=== PATIENT | male | born 1945 | race Caucasian/White ===

== ENCOUNTER 2017-05-06 09:53 | Outpatient (CLI) | payer MEDICARE, OTHER ==
--- NOTE | 2017-05-06 14:40 | MRI ---
MRI OF THE RIGHT SHOULDER WITHOUT IV CONTRAST: Date: 05/06/17 COMPARISON: Prior exam dated 12/04/13 MR examination and 04/29/17 radiographic evaluation. FINDINGS: There is a massive rotator cuff tear now present involving the supraspinatus, infraspinatus, and subs capularis. The very caudal aspect of the subscapularis remains intact. There is now an interarticular split tear involving the biceps tendon that extends into the proximal bicipital groove. There is pro minent fluid surrounding the glenohumeral joint in the subacromial/subdeltoid space. There is moderat e atrophy of the supraspinatus, infraspinatus, and subscapularis. There is mild AC joint osteoarthros is. There is prominent degenerative fraying of the superior glenoid labrum. There is mild osteoarthri tic change of the glenohumeral joint. IMPRESSION: 1. Massive rotator cuff tear with moderate muscular atrophy. 2. Mild AC joint osteoarthrosis. 3. Mild glenohumeral osteoarthrosis. 4. Degenerative fraying of the glenoid labrum. 5. High grade partial thickness split tear involving the proximal long head of the biceps tendon. POS: [facility]
== END 2017-05-06 09:54 | disposition home or self-care (01) ==
LOC: TBSIIMAG 09:53
PROVIDERS: ATTEND Orthopaedic Surgery
DX: M25.511 Pain in right shoulder (principal); M75.101 Unspecified rotator cuff tear or rupture of right shoulder, not specified as traumatic; M19.011 Primary osteoarthritis, right shoulder; S46.811A Strain of other muscles, fascia and tendons at shoulder and upper arm level, right arm, initial encounter

== ENCOUNTER 2017-05-09 09:22 | Outpatient (CLI) | payer MEDICARE, OTHER ==
[2017-05-09 10:27] LABS: #Eosinphils 0.2 thou/uL (0.0-0.7); #Lymphocytes 1.4 thou/uL (1.20-3.40); #Monocytes 0.5 thou/uL (0.11-0.59); #Neutrophils 3.9 thou/uL (1.40-6.50); %Basophils 0.6 % (0.0-1.0); %Eosinophils 2.6 % (0.0-10.0); %Lymphocytes 23.6 % (21.0-51.0); %Neutrophils 65.2 % (42.0-75.0); Hemoglobin 14.4 g/dL (14.0-18.0); Mean Corpuscular HGB CONC 33.5 g/dL (32.0-36.0); Mean Corpuscular Hemoglobin 29.8 pg (27.0-31.0); Mean Platelet Volume 7.4 fL (7.4-10.4); Platelet Count 207 thou/uL (130-400); RBC Distribution Width 12.8 % (11.5-14.5); Red Blood Cell (RBC) Count 4.83 mill/uL (4.70-6.10); White Blood Cell (WBC) Count 5.9 thou/uL (4.8-10.8)
[2017-05-09 10:48] LABS: Anion Gap 11 mmol/L (10-20); BUN (Urea Nitrogen) 12 mg/dL (8.4-25.7); Calc. Creatinine Clearance 0 mL/min (70-130); Carbon Dioxide 25 mmol/L (23-31); Chloride 104 mmol/L (98-107); Estimated GFR-MDRD Greater than 90; Glucose 97 mg/dL (83-110); Potassium 4.2 mmol/L (3.5-5.1); Sodium 136 mmol/L (136-145)
--- NOTE | 2017-05-22 22:48 | EKG ---
Test Reason : Blood Pressure : / mmHG Vent. Rate : 063 BPM Atrial Rate : 063 BPM P-R Int : 170 ms QRS Dur : 104 ms QT Int : 396 ms P-R-T Axes : 025 -25 023 degrees QTc Int : 405 ms Normal sinus rhythm Possible Anterior infarct , age undetermined Abnormal ECG When compared with ECG of 23-MAR-2002 09:53, Premature ventricular complexes are no longer Present Confirmed by Michelle RENEE ([id number]) on 05/22/2017 10:48:15 PM Referred By: KEV Confirmed By:Michelle RENEE
== END 2017-05-09 09:23 | disposition home or self-care (01) ==
LOC: LABBT 09:22
PROVIDERS: ATTEND Orthopaedic Surgery
DX: Z01.818 Encounter for other preprocedural examination (principal); M75.102 Unspecified rotator cuff tear or rupture of left shoulder, not specified as traumatic
CPT/HCPCS: 80048; 85025; 93005; 93010

== ENCOUNTER 2017-05-15 07:02 | Day surgery (SDC) | payer MEDICARE, OTHER ==
[2017-05-09 09:39] VITALS: BMI 35.3
--- NOTE | 2017-05-15 07:36 | HP ---
HISTORY OF PRESENT ILLNESS: The patient is a 71-year-old right-handed male who has had a several yea r history of chronic impingement syndrome of the right shoulder, which has previously been managed wi th rest, restriction of activities, anti-inflammatory medications, and intermittent cortisone injecti ons. He became much worse approximately 2 weeks ago when he fell from a ladder. He has had increase d pain, marked weakness and inability to use his arm with day to day activities including eating, get ting dressed, and personal hygiene. He wants to have something done until this current situation is acceptable. PAST MEDICAL HISTORY: As noted above. The patient has a history of enlarged prostate, high choleste rol. He is normally quite active. CURRENT MEDICATIONS: Include Flomax, simvastatin, hydrocodone for pain. ALLERGIES: He is allergic to BUPRENORPHINE PATCH. FAMILY HISTORY: Otherwise unremarkable. SOCIAL HISTORY: Otherwise unremarkable. REVIEW OF SYSTEMS: Otherwise unremarkable. PHYSICAL EXAMINATION: GENERAL: Reveals an elderly healthy heavyset male. HEENT: Unremarkable. NECK: Supple. CHEST: Clear. HEART: Regular rate and rhythm. ABDOMEN: Soft, nontender. RECTAL/GENITAL: Deferred. EXTREMITIES: Pertinent findings of the right shoulder, there is mild bruising along the biceps and t he mid arm. There is tenderness in the subacromial area. Active flexion, abduction is less than 90 degrees. He has a positive drop arm test and weakness to forward flexion, abduction, and external ro tation. He has a positive impingement sign. There is no instability. Neurovascular exam is intact. There are good distal pulses. X-RAY FINDINGS: X-rays of the right shoulder reveal DJD at the AC joint, some early degenerative ham nges of the glenoid and the humeral head, may be slightly high riding. MRI scan of the right shoulde r reveals a massive rotator cuff tear with retraction and mild to moderate muscle atrophy, a split te ar of the biceps and early degenerative changes. IMPRESSION: Chronic impingement syndrome and rotator cuff tear and biceps tendinitis, right shoulder . PLAN: Open acromioplasty, attempted rotator cuff repair with possible biceps tenodesis. The nature of the surgery, length of recovery, and potential complications such as infection, loss of motion, in complete relief, inability to repair the tear, rupture of the repair, neurovascular injury and need f or additional treatment or repeat surgery have been discussed in detail with the patient and his .
[2017-05-15] MEDS ORDERED: Fentanyl 100 MCG/2 ML VIAL ONE ×2 (08:13→08:54)
[2017-05-15] MEDS ORDERED: Midazolam HCl 2 mg/2 ml Vial ONE (08:13)
[2017-05-15] MEDS ORDERED: HYDROmorphone 0.5 MG/0.5 ML SYRINGE ONE (08:54)
[2017-05-15] MEDS ORDERED: HYDROcodone/Acetaminophen 5/325 mg Tablet PO PRN ×2 (08:57)
[2017-05-15] MEDS ORDERED: Zolpidem Tartrate 5 MG TAB PO PRN (08:57)
[2017-05-15] MEDS ORDERED: Ropivacaine 0.2% 550 ML 550 ML NERVE BLCK SCH (08:57)
[2017-05-15] MEDS ORDERED: Promethazine HCl 25 MG/ML VIAL IM PRN (08:57)
[2017-05-15] MEDS ORDERED: traMADol HCl 50 MG TAB PO PRN ×2 (08:57)
[2017-05-15] MEDS ORDERED: Ondansetron HCl/PF 4 MG/2 ML Vial IVP PRN (08:57)
[2017-05-15] MEDS ORDERED: Ketorolac Tromethamine 30 MG/ML VIAL IVP PRN (08:57)
[2017-05-15] MEDS ORDERED: CEFAZOLIN/Water 2 GM/20 ML SYRINGE ONE (08:58)
[2017-05-15] MEDS ORDERED: Fentanyl 100 MCG/2 ML VIAL IV PRN (08:59)
[2017-05-15] MEDS ORDERED: Ropivacaine 0.2% HCl/PF (40 MG/20 ML VIAL) ONE (12:15)
[2017-05-15] MEDS ORDERED: Ropivacaine 0.5% HCl/PF (150 MG/30 ML VIAL) ONE (12:15)
[2017-05-15] MEDS ORDERED: Ondansetron HCl/PF 4 MG/2 ML Vial ONE (13:17)
[2017-05-15] MEDS ORDERED: Lidocaine 1% PF 5 ML VIAL ONE (13:17)
[2017-05-15] MEDS ORDERED: PHENYLEPHRINE-NS 100 MCG/ML 10 ML SYRINGE ONE (13:17)
[2017-05-15] MEDS ORDERED: ePHEDrine/0.9% NaCl/PF SYRINGE 50 mg/10 ml ONE (13:17)
[2017-05-15] MEDS ORDERED: PROPOFOL 200 MG/20 ML VIAL ONE (13:17)
[2017-05-15] MEDS ORDERED: Dexamethasone 20 MG/5 ML VIAL ONE (13:17)
--- NOTE | 2017-05-15 15:53 | OP ---
DATE OF PROCEDURE: 05/15/2017 SURGEON: Emeka Coreas M.D. WAXED BAG MACHINE OPERATOR: Steffanie Richardson PA-C. ANESTHESIA: General plus scalene block. PREOPERATIVE DIAGNOSES: Massive rotator cuff tear, right shoulder. POSTOPERATIVE DIAGNOSES: Massive rotator cuff tear, right shoulder. PROCEDURE: Open acromioplasty and rotator cuff repair, right shoulder. OPERATIVE FINDINGS: Examination under anesthesia revealed the shoulder to be stable. At exploration , there was moderate subacromial impingement. There was a massive rotator cuff tear with essentially bald humeral head with moderate retraction. There was significant degeneration of the teres major t endon. There was some fraying of the biceps, but the bulk of the tendon appeared to be intact so I e lected to leave this as is. Satisfactory repair was accomplished, but posteriorly I could not in fac t completely repair and had probably 85%-90% repair of the tendon, which appeared to be satisfactory. NARRATIVE REPORT: After satisfactory anesthesia was induced in the semi allen chair position, the p atient was prepped and draped in routine manner. Shoulder was approached through anterolateral incis ion centered off the anterolateral edge of the acromion process, carried down through subcutaneous ti ssues. Bleeding points controlled with Bovie cautery. Deltoid raphae was split and the deltotrapezi al fascia detached from the anterior edge of the acromion process and distal clavicle. Coracoacromia l ligament was divided. Anterior acromioplasty was accomplished by sizing the anterior acromion flus h with the clavicle with an osteotome and the undersurface bevelled with a curved osteotome, rongeur and rasp. The deltoid was reflected. A partial subacromial bursectomy was performed. The above fin dings were noted. Using sharp and blunt dissection, the above findings were noted. Several traction sutures of heavy Vicryl suture were placed temporarily in the tendon and the tear mobilized with larry nt dissection and the above findings were noted. The ends were slightly freshened. A portion of the greater tuberosity was excised with a rongeur to provide a good bony bed for repair. The rotator cu ff was then repaired using three triple loaded suture anchors with heavy FiberWire suture. After pa cing sutures, they were tied in sequence of posterior to anterior. Posteriorly, there was still a po rtion of the teres they cannot really be repaired, but does appear to be good coverage of the humeral head and appeared to be between 85%-90% repair of the cuff. After tying the sutures, the shoulder could be placed through a gentle range of motion and there was satisfactory motion and no excessive tension on the repair and satisfactory subacromial clearance. One strand from each suture was cut and the other remaining strand was used to effect a double row te chnique using 2 SwiveLock anchors placed in a crisscross fashion. This appeared to give good stable repair and the cuff repair laid flat. The wound was thoroughly irrigated. The deltoid was repaired back to bone with interrupted #1 Ethibond sutures. The deltoid raphae was closed with interrupted #1 Vicryl, subcutaneous tissues closed with interrupted 2-0 Vicryl, and skin closed with staple gun. S terile dressing was applied. The patient immobilized in an arm sling. He was awakened and taken to recovery room in stable condition. There were no apparent intraoperative complications. The estimat ed blood loss was approximately 100 mL. The patient will be discharged home in satisfactory condition. He was instructed in ice, elevation, and given written wound care instructions. He was at home program with the use of a sling. Isometri cs of his biceps and triceps and gentle passive pendulum exercises, but no active range of motion. Ambika tracey will use a sling at all times except for skin care and gentle pendulum exercises. He was given [place] wound care instructions and a prescription for [place] 10 for pain, 100 tablets. He will be reche cked in my office in approximately 2 weeks or sooner if any problems prior to that time.
== END 2017-05-15 14:15 | disposition home or self-care (01) ==
LOC: SDC 07:02
PROVIDERS: ATTEND Orthopaedic Surgery
PROC: 0LQ10ZZ Repair Right Shoulder Tendon, Open Approach (ICD-10-PCS; principal; 2017-05-15)
PROC: 0RNJ0ZZ Release Right Shoulder Joint, Open Approach (ICD-10-PCS; 2017-05-15)
DX: S46.011A Strain of muscle(s) and tendon(s) of the rotator cuff of right shoulder, initial encounter (principal); G89.4 Chronic pain syndrome; N40.0 Benign prostatic hyperplasia without lower urinary tract symptoms; E78.00 Pure hypercholesterolemia, unspecified; Z88.5 Allergy status to narcotic agent; Z79.899 Other long term (current) drug therapy; W11.XXXA Fall on and from ladder, initial encounter
CPT/HCPCS: 23415; 97110; 97139; A4306; G8984; G8985; G8986; C1713; J1100; J1170; J2001; J2250; J2405; J2704; J2795; J3010

== ENCOUNTER 2019-07-01 13:21 | Outpatient (CLI) | payer MEDICARE, OTHER ==
--- NOTE | 2019-07-01 14:15 | RAD ---
LEFT FOOT: 07/01/19 Three views. HISTORY: Foot pain. Spur from the plantar calcaneus. Prominent degenerative changes at the tarsometatarsal joints with brian int narrowing and hypertrophic spurring. Subchondral cystic changes are seen at the first, second and third tarsometatarsal joints. Mild DJD at the first MTP joint. No fracture or acute abnormality. IMPRESSION: Prominent DJD at the tarsometatarsal joints. Calcaneal spur. POS: [facility]
--- NOTE | 2019-07-01 14:17 | RAD ---
EXAM: RIGHT FOOT THREE VIEWS: 07/01/19 HISTORY: Right foot pain particularly at the first tarsal region extending towards the ankle, numbness in toes . FINDINGS: Osteoarthrosis and degenerative changes of the foot and ankle. Minimal dorsal and medial soft tissue swelling but less prominent than on the prior exam, 02/25/2019. Calcaneal and plantar enthesophytes. N o acute fracture or dislocation. IMPRESSION: Osteoarthrosis and degenerative change. Minimal dorsal and medial soft tissue swelling but less marke d than on prior study. No acute fracture or dislocation. POS: [facility]
== END 2019-07-01 13:22 | disposition home or self-care (01) ==
LOC: BICRAD 13:21
PROVIDERS: ATTEND Podiatrist
DX: M79.671 Pain in right foot (principal); M79.89 Other specified soft tissue disorders; M19.071 Primary osteoarthritis, right ankle and foot; M19.072 Primary osteoarthritis, left ankle and foot; M77.32 Calcaneal spur, left foot

== ENCOUNTER 2020-01-14 07:36 | Outpatient (CLI) | payer MEDICARE, OTHER ==
--- NOTE | 2020-01-14 10:31 | MRI ---
MRI LUMBAR SPINE WITHOUT CONTRAST: Date: 01/14/2020 INDICATION: Lumbar degenerative disc disease. Low back pain. FINDINGS: Lumbar vertebra maintain height. There are moderately severe degenerative changes throughout with ant erior and lateral osteophytes from the lumbar vertebra. Degenerative disc changes at all levels of th e lumbar spine, most severe at L1-2, L2-3, and L3-4. Loss of disc space is pronounced at L5-S1. L5 is transitional. Degenerative end plate changes are prominent at L2-3 and L3-4. T12-L1: Broad based disc bulge flattens the thecal sac and effaces the anterior subarachnoid space. No significant impingement on the conus. Mild central canal stenosis. L1-2: Diffuse disc bulge flattens the thecal sac. Facet arthrosis and hypertrophy. Mild central any l stenosis. Mild left foraminal stenosis. L2-3: Broad based disc bulge flattens the thecal sac. Facet arthrosis and hypertrophy. Mild to moder ate central canal stenosis. No significant foraminal stenosis. L3-4: Slight posterolisthesis with broad based disc bulge. Moderate facet hypertrophy. Mild to moder ate central canal stenosis. Bilateral foraminal stenosis. L4-5: Slight posterolisthesis with diffuse disc bulge. Moderate facet hypertrophy. Mild central any l stenosis. Bilateral foraminal stenosis. L5-S1: Mild disc bulge. No significant central canal stenosis. Bilateral foraminal stenosis. IMPRESSION: Multilevel degenerative disc changes as described above. POS: [facility]
--- NOTE | 2020-01-14 10:35 | MRI ---
MRI THORACIC SPINE WITHOUT CONTRAST: Date: 01/14/2020 INDICATION: Thoracic spine pain. FINDINGS: Thoracic vertebra maintain height and alignment. No evidence of thoracic vertebra edema or compressio n. Degenerative disc changes at multiple levels. Degenerative osteophytes in anterior and lateral tho racic vertebra. There are disc bulges at multiple levels as detailed below. Diffuse bulge at T2-T3 effaces the anterior subarachnoid space and appears to abut the cord on the sa gittal imaging. Minimal disc bulge at T5-T6 flattens the thecal sac and mildly effaces the anterior subarachnoid spac e. No cord impingement. Similar disc bulges are seen at T6-T7 and T7-T8. Anterior subarachnoid space is effaced at both of th angelique levels. A more pronounced bulge/protrusion at T8-T9 abuts the anterior cord. Disc bulge/protrusion at T10-T11 impinges on and mildly compresses the anterior cord. Diffuse bulge/protrusion at T12-L1 is seen with disc osteophyte complex to the left flattening the th ecal sac on the left and effacing the anterior subarachnoid space. No significant impingement on the conus. The thoracic cord signal appears normally maintained. IMPRESSION: 1. Multilevel degenerative disc changes of thoracic spine. Thoracic vertebra maintain height and ali gnment. 2. Disc bulges and protrusions at multiple levels as detailed above. POS: [facility]
== END 2020-01-14 07:37 | disposition home or self-care (01) ==
LOC: TBSIIMAG 07:36
PROVIDERS: ATTEND Family Medicine
DX: M51.36 Other intervertebral disc degeneration, lumbar region (principal); M54.6 Pain in thoracic spine; M51.34 Other intervertebral disc degeneration, thoracic region; M51.24 Other intervertebral disc displacement, thoracic region
CPT/HCPCS: 72146; 72148

== ENCOUNTER 2020-04-04 12:56 | Outpatient (CLI) | payer MEDICARE, OTHER ==
--- NOTE | 2020-04-04 15:04 | MRI ---
MRI OF RIGHT KNEE PERFORMED WITHOUT CONTRAST ENHANCEMENT: HISTORY: Twisting injury to knee 5-6 weeks ago, persistent effusion. FINDINGS: The anterior and posterior cruciate ligaments are intact. There is a complex tear involving the posterior horn and body region of the medial meniscus. Menisca l protrusion related to radial components of the tear and loss of hoop strength. On the lateral side, there is a partial root tear of the posterior horn. There is what may e a separ ate tear or continuation of the tear extending into the posterior horn and body junction region and i nto the body of the meniscus which is truncated. There are marked arthritic changes of both the medi al and lateral compartments of the knee associated with these findings. Medial and lateral collateral ligaments and iliotibial band regions are unremarkable. Patellar articular cartilage shows mild articular cartilage loss. The medial and lateral patellar re tinaculum and quadriceps and patellar tendons are normal. Minimal joint effusion is seen. There is a very large Moseley's cyst. IMPRESSION: 1. Severe arthritic changes of the medial and lateral compartments of the knee with extensive menisc al tears. 2. Large Moseley's cyst. POS: [facility]
== END 2020-04-04 12:57 | disposition home or self-care (01) ==
LOC: BICMRI 12:56
PROVIDERS: ATTEND Orthopaedic Surgery
DX: M23.91 Unspecified internal derangement of right knee (principal); S83.281A Other tear of lateral meniscus, current injury, right knee, initial encounter; S83.241A Other tear of medial meniscus, current injury, right knee, initial encounter; M17.11 Unilateral primary osteoarthritis, right knee; M71.21 Synovial cyst of popliteal space [Baker], right knee

== ENCOUNTER 2022-02-22 08:34 | Outpatient (CLI) | payer MEDICARE, OTHER | END 2022-02-22 08:35 | disposition home or self-care (01) | LOC: NM 08:34 | PROVIDERS: ATTEND Psychiatry & Neurology Neurology | DX: R25.1 Tremor, unspecified (principal) | CPT/HCPCS: 78803; A9584 ==